=== PATIENT | female | born 1970 | race Caucasian/White ===

== ENCOUNTER 2017-03-08 17:50 | Observation (INO) | payer OTHER ==
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
[2017-03-08 20:14] LABS: BASO % 0.4 % (0.0-2.0); EOS # 0.1 K/uL (0.0-0.7); EOS % 1.3 % (0.0-4.0); HEMATOCRIT 33.6 % (34.0-47.0); LYMPH # 1.8 K/uL (1.0-4.3); LYMPH % 32.4 % (20.0-40.0); MEAN CELL VOLUME 86.6 fl (81.0-99.0); MEAN CORPUSCULAR HEMOGLOBIN 28.3 pg (27.0-31.0); MEAN CORPUSCULAR HGB CONC 32.7 g/dL (33.0-37.0); MEAN PLATELET VOLUME 8.1 fl (7.2-11.7); MONO # 0.6 K/uL (0.0-0.8); MONO % 10.7 % (0.0-10.0); NEUT % 55.2 % (50.0-75.0); NRBC % 0.1 % (0.0-0.0); RED CELL DISTRIBUTION WIDTH 16.9 % (11.5-14.5); WHITE BLOOD COUNT 5.4 K/uL (4.8-10.8)
[2017-03-08 20:21] LABS: ALB/GLOB RATIO 1.1 (1.0-2.1); ALKALINE PHOSPHATASE 77 U/L (38-126); ALT/SGPT 26 U/L (9-52); AST/SGOT 21 U/L (14-36); BILIRUBIN,TOTAL 0.5 mg/dl (0.2-1.3); BLOOD UREA NITROGEN 7 mg/dl (7-17); CALCIUM 9.4 mg/dL (8.4-10.2); CARBON DIOXIDE 27 mmol/L (22-30); CHLORIDE 107 mmol/L (98-107); GFR AFRICAN-AMERICAN > 60; GLUCOSE,RANDOM 96 mg/dL (65-105); MAGNESIUM 2.2 MG/DL (1.6-2.3); PHOSPHOROUS 3.7 mg/dl (2.5-4.5); POTASSIUM 4.3 MMOL/L (3.6-5.0); SODIUM 139 mmol/l (132-148); TOTAL PROTEIN 7.4 G/DL (6.3-8.2)
[2017-03-08 20:51] LABS: THYROID STIMULATING HORMONE 2.53 mIU/ML (0.46-4.68)
[2017-03-08 22:26] LABS: RBC URINE 3 /hpf (0-3); URINE BACTERIA RARE (<OCC); URINE BILIRUBIN NEGATIVE (NEGATIVE); URINE BLOOD NEGATIVE (NEGATIVE); URINE COLOR YELLOW (YELLOW); URINE GLUCOSE (UA) NEG (Normal); URINE KETONE NEGATIVE (NEGATIVE); URINE LEUKOCYTE ESTERASE SMALL Leu/uL (Negative); URINE PROTEIN NEGATIVE (NEGATIVE); URINE UROBILINOGEN 0.2-1.0 mg/dL (0.2-1.0)
[2017-03-08 22:29] LABS: WBC URINE 6 /hpf (0-5)
--- NOTE | 2017-03-09 00:33 | ED PDOC ---
- Laboratory Results Result Diagrams: 03/08/17 19:58 03/08/17 19:58 - ECG O2 Sat by Pulse Oximetry: 99 Medical Decision Making Medical Decision Makin Patient signed out to me from Dr. Orr pending crisis eval. All further documentation will take place in ED OBS section of chart. Scribe Attestation: Documented by Michelle Waddell acting as a scribe for Philipp Cohen MD. Scribe Attestation: All medical record entries made by the Scribe were at my direction and personally dictated by me. I have reviewed the chart and agree that the record accurately reflects my personal performance of the history, physical exam, medical decision making, and the department course for this patient. I have also personally directed, reviewed, and agree with the discharge instructions and disposition. Disposition - Clinical Impression Clinical Impression: Psychosis - POA Present On Arrival: None - Disposition Disposition: Hospitalized as Observation Patient Disposition Time: 18:32 (03/08/17) Condition: FAIR Patient Signed Over To: Marino Chang (at 07:00 03/09/17) Handoff Comments: Pending CT ED OBSERVATION Date of observation admission: 03/08/17 Time of observation admission: 18:32 - Observation admission statement Patient is being placed in observation because:: crisis eval - Goals of Observation Goals of observation are:: psychiatric diagnosis - Progress Note Progress Note: 03/09/17 00:33 Patient resting comfortably. 03/09/17 00:33 Patient pending [facility] evaluation. 03/09/17 02:00 Patient resting in room. Vitals stable. 03/09/17 03:07 Patient resting in room. Vitals stable. 03/09/17 04:23 Patient resting in room. Vitals stable. 03/09/17 05:44 Patient resting in room. Vitals stable. 03/09/17 07:00 Patient resting in room. Vitals stable. Patient will be signed out to Dr. Chang pending CT.
--- NOTE | 2017-03-09 08:24 | CT ---
PROCEDURE: CT HEAD WITHOUT CONTRAST. HISTORY: ALTERED MENTAL STATUS COMPARISON: None available. TECHNIQUE: Axial computed tomography images were obtained through the head/brain without intravenous contrast. Radiation dose: Total exam DLP = 883.18 mGy-cm. This CT exam was performed using one or more of the following dose reduction techniques: Automated exposure control, adjustment of the mA and/or kV according to patient size, and/or use of iterative reconstruction technique. FINDINGS: HEMORRHAGE: No intracranial hemorrhage. BRAIN: No mass effect or edema. No atrophy or chronic microvascular ischemic changes. VENTRICLES: Unremarkable. No hydrocephalus. CALVARIUM: Unremarkable. PARANASAL SINUSES: Unremarkable as visualized. No significant inflammatory changes. MASTOID AIR CELLS: Unremarkable as visualized. No inflammatory changes. OTHER FINDINGS: None. IMPRESSION: Normal CT of the Head. No intracranial mass, hemorrhage or evidence of acute infarct. Preliminary interpretation of this examination was reported by [facility] at 9:08 p.m. on 03/08/2017. There is concurrence of this report with the preliminary interpretation.
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
--- NOTE | 2017-03-09 10:37 | CARD ---
APPROVED REPORT EKG Measurement Heart [id number] <Conclusion> Normal sinus rhythm Nonspecific T wave abnormality Abnormal ECG
--- NOTE | 2017-03-09 15:42 | ED PDOC ---
- Laboratory Results Result Diagrams: 03/08/17 19:58 03/08/17 19:58 - ECG O2 Sat by Pulse Oximetry: 100 Pulse Ox Interpretation: Normal - Progress ED Course And Treament: pt has been comfortable during my entire shift. pt screen and accepted to [facility] and is now awaiting bed placement. Re-evaluation Time: 15:40 Condition: Unchanged Disposition Counseled Patient/Family Regarding: Studies Performed, Diagnosis, Need For Followup - Clinical Impression Clinical Impression: Psychosis - POA Present On Arrival: None - Disposition Disposition: Discharged to Psych Hospital Disposition Time: 15:41 Condition: STABLE
--- NOTE | 2017-03-09 16:54 | ED PDOC ---
- Laboratory Results Result Diagrams: 03/08/17 19:58 03/08/17 19:58 - ECG O2 Sat by Pulse Oximetry: 100 (RA) Pulse Ox Interpretation: Normal Medical Decision Making Medical Decision Makin:53 Patient signed out to me from Dr. Chang. Disposition - Clinical Impression Clinical Impression: Psychosis - POA Present On Arrival: None - Disposition Disposition: Transfer of Care Disposition Time: 19:00 Condition: STABLE Patient Signed Over To: Sincere Sotomayor
--- NOTE | 2017-03-09 19:18 | ED PDOC ---
- Laboratory Results Result Diagrams: 03/08/17 19:58 03/08/17 19:58 - ECG O2 Sat by Pulse Oximetry: 100 (RA) Pulse Ox Interpretation: Normal Medical Decision Making Medical Decision Makin:00 Patient signed out to me from Dr. Tobar. Patient's condition is stable. Disposition - Clinical Impression Clinical Impression: Psychosis - Disposition Condition: STABLE
--- NOTE | 2017-03-09 19:19 | ED PDOC ---
- Laboratory Results Result Diagrams: 03/08/17 19:58 03/08/17 19:58 - ECG O2 Sat by Pulse Oximetry: 100 (RA) Pulse Ox Interpretation: Normal Medical Decision Making Medical Decision Makin:00 Patient signed out to me from Dr. Orr. Patient is accepted at [facility] pending bed availability. Disposition - Clinical Impression Clinical Impression: Psychosis - POA Present On Arrival: None - Disposition Disposition: Hospitalized as Observation Patient Disposition Time: 18:32 (03/09/2017) Condition: FAIR Patient Signed Over To: Mikey Barros III (at 0700 03/10/2017) Handoff Comments: Pending [facility] bed placement ED OBSERVATION Date of observation admission: 03/09/17 Time of observation admission: 18:32 - Observation admission statement Patient is being placed in observation because:: Now pending [facility] bed availability - Goals of Observation Goals of observation are:: [facility] bed - Progress Note Progress Note: 03/09/17 18:32 Patient resting comfortably. Vitals stable. 03/09/17 19:51 Ativan 1mg IM 03/09/17 21:30 Patient's condition remains stable. 03/09/17 23:12 Ativan 1mg IM 03/10/17 00:26 Patient's condition remains stable. Resting comfortably. CXR 03/10/17 01:37 Patient's condition remains stable. Resting comfortably. 03/10/17 02:51 CXR FINDINGS: The mediastinal cardiac silouette is normal in size. Pleural and diaphragmatic calcifications are present. Correlation with history of asbestos exposure may be helpful. There are scattered irregular patchy opacities throughout the lungs bilaterally of uncertain origin although possibilities would include inflammatory, infectious, neoplastic etiologies. No effusions are identified. The osseous structures are normal. IMPRESSION: Irregular patchy pulmonary densities bilaterally as discussed above for which followup is recommended. If there are prior studies, I would be happy to correlate them. Pleural and diaphragmatic calcifications. CT CHEST W CONTRAST Abnormal findings found with CXR, not likely acute. 03/10/17 03:32 Attempted to speak Luke and Kazakh to patient with no response. Gómez automotive metalsmith is unable to be found at this time. Patient is combative requiring sedation. CT CHEST ordered to further characterize lesions seen on CXR. 03/10/17 04:45 CT FINDINGS No pulmonary embolism. No aortic dissection or aneurysm. No pleural or pericardial effussions. There are extensive calcified pleural plaques throughout both lungs including the diaphragmatic interface, presumably accounting for the dense opacities seen on chest x-ray. There are no pulmonary infiltrates identified. IMPRESSION: Extensive calcified pleural plaques bilaterally,a finding associated with asbestos exposure and presumably accounting for the densities on chest x-ray. 03/10/17 04:54 Patient likely has previously history of asbestos exposure. Patient notes no respiratory complaints or issues. (-) cough or hypoxia. No specific treatment or work up indicated. Patient medically clear for psychiatric admission. 03/10/17 05:37 Patient's condition remains stable. 03/10/17 06:[address] Wilson (pulmonary), who believes patient has been in this condition for likely more than a decade. No treatment indicated, no need for admission. 03/10/17 07:00 Patient will be signed out to Dr. Barros pending [facility] bed placement.
--- NOTE | 2017-03-10 02:50 | RAD ---
EXAM: XR Chest, 1 View EXAM DATE/TIME: 03/10/2017 12:26 AM CLINICAL HISTORY: 46 years old, female; Screening exam; Other screening; Additional info: R/O pna TECHNIQUE: Frontal view of the chest. COMPARISON: No relevant prior studies available. FINDINGS: The mediastinal cardiac silouette is normal in size. Pleural and diaphragmatic calcifications are present. Correlation with history of asbestos exposure may be helpful. There are scattered irregular patchy opacities throughout the lungs bilaterally of uncertain origin although possibilities would include inflammatory, infectious, neoplastic etiologies. No effusions are identified. The osseous structures are normal. IMPRESSION: Irregular patchy pulmonary densities bilaterally as discussed above for which followup is recommended.If there are prior studies, I would be happy to correlate them. Pleural and diaphragmatic calcifications.
[2017-03-10] MEDS ORDERED: Sodium Chloride 0.9% 50 ML IV ONE (03:08)
[2017-03-10] MEDS ORDERED: Iohexol 300 100 ML IJ ONE (03:08)
--- NOTE | 2017-03-10 04:42 | CT ---
EXAM: CT Chest With Intravenous Contrast EXAM DATE/TIME: 03/10/2017 2:52 AM CLINICAL HISTORY: 46 years old, female; Abnormal findings; Abnormal radiologic exam of lung or chest; Additional info: Opacities on xray, R/O neoplasm v. Pna. Patient not able to cooperate for exam TECHNIQUE: Axial computed tomography images of the chest with intravenous contrast. All CT scans at this facility use one or more dose reduction techniques, viz.: automated exposure control; ma/kV adjustment per patient size (including targeted exams where dose is matched to indication; i.e. head); or iterative reconstruction technique. Coronal and sagittal reformatted images were created and reviewed. CONTRAST: 80 mL of [id number] administered intravenously. COMPARISON: CR - CHEST PORTABLE 03/10/2017 1:01:07 AM FINDINGS: No pulmonary embolism. No aortic dissection or aneurysm. No pleural or pericardial effussions. There are extensive calcified pleural plaques throughout both lungs including the diaphragmatic interface, presumably accounting for the dense opacities seen on chest x-ray. There are no pulmonary infiltrates identified. IMPRESSION: Extensive calcified pleural plaques bilaterally,a finding associated with asbestos exposure and presumably accounting for the densities on chest x-ray .
--- NOTE | 2017-03-10 07:07 | ED PDOC ---
- Laboratory Results Result Diagrams: 03/08/17 19:58 03/08/17 19:58 - ECG O2 Sat by Pulse Oximetry: 100 (RA) Medical Decision Making Medical Decision Makin recd on endorsement pending [facility] bed. 10:30a remains in ED awake, cooperative with periods of mild agitation Psychiatrist saw patient and ordered medication 1p [facility] made aware of pulmonary thoughts on abnormal CXR/ CT. Remains w no respiratory complaints in ED, normal respiratory effort. 3pm endorsed Dr Hawkins pending [facility] bed. Per RN, medically accepted at [facility]. Disposition Counseled Patient/Family Regarding: Studies Performed, Diagnosis - Clinical Impression Clinical Impression: Psychosis - POA Present On Arrival: None - Disposition Disposition: Transfer of Care Disposition Time: 15:25 Condition: FAIR
[2017-03-10 10:33] VITALS: RESP 20
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
[2017-03-10 16:00] VITALS: BP 138/80; PULSE 88; TEMP 98.7
[2017-03-12 05:15] VITALS: O2SAT 99
== END 2017-03-10 17:05 ==
LOC: H.ER 17:50 → H.EROBSV 18:32
PROVIDERS: ADMIT Emergency Medicine; ATTEND Emergency Medicine
DX: F29 Unspecified psychosis not due to a substance or known physiological condition (principal); Z77.090 Contact with and (suspected) exposure to asbestos
CPT/HCPCS: 36415; 70450; 71010; 71260; 80053; 80320; 80324; 80345; 80346; 80349; 80353; 80358; 80361; 81003; 82948; 83735; 83992; 84100; 84443; 84703; 85025; 93005; 96372; 96374; 99285; G0378; J2060; Q9967

== ENCOUNTER 2018-11-25 05:54 | Emergency (ER) | payer OTHER ==
--- NOTE | 2018-11-25 06:47 | ED PDOC ---
HPI: Psych/Substance Abuse Time Seen by Provider: 11/25/18 05:58 Chief Complaint (Nursing): Psychiatric Evaluation Chief Complaint (Provider): Psychiatric Evaluation History Per: Patient, Family, Integration Analyst (Gujarati Integration Analyst RADHA) History/Exam Limitations: clinical condition Onset/Duration Of Symptoms: Days Current Symptoms Are (Timing): Still Present Suicide/Self Injury Attempted (Context): None Modifying Factor(s): None Additional Complaint(s): 48 y/o female brought in by family for psychiatric evaluation. History obtained from children using Gujarati Integration Analyst RADHA. Patient with a PMHx of depression was taking [place] and Zyprexa until February 2018 when her family discontinued the medications because of a side affect of leg swelling. Family report that over the past month, patient is becoming increasingly more depressed, not wanting to leave the house or answering questions. As per family, patient is becoming more and more withdrawn. Family report of having called mobile crisis and was recommended by them to bring the patient to the ER for further evaluation. Patient offers no complaints at this time. Patient reports of feeling well. Patient denies suicidal ideation, homicidal ideation, taking any medications and any psychiatric issues. History from patient limited because patient only answers a few questions despite multiple prompts in her [place] language of Gujarati. PMD: Colton Woodson Past Medical History Reviewed: Historical Data, Nursing Documentation, Vital Signs Vital Signs: Last Vital Signs Temp 98.3 F 11/25/18 06:04 Pulse 127 H 11/25/18 06:04 Resp 18 11/25/18 06:04 BP 132/96 H 11/25/18 06:04 Pulse Ox 98 11/25/18 06:04 Primary Care Provider: Colton Woodson - Medical History PMH: Depression Denies: Diabetes, Hepatitis, HIV, HTN, Seizures, Sexually Transmitted Disease - Surgical History Surgical History: No Surg Hx - Family History Family History: States: Unknown Family Hx - Living Arrangements Living Arrangements: With Family - Home Medications Home Medications: Ambulatory Orders Medication Instructions Recorded Unobtainable 03/09/17 - Allergies Allergies/Adverse Reactions: Allergies Allergy/AdvReac Type Severity Reaction Status Date / Time No Known Allergies Allergy Verified 11/25/18 06:04 Review of Systems ROS Statement: Except As Marked, All Systems Reviewed And Found Negative Psych: Positive for: Depression. Negative for: Suicidal ideation Physical Exam - Reviewed Nursing Documentation Reviewed: Yes Vital Signs Reviewed: Yes - Physical Exam Appears: Positive for: No Acute Distress (but withdrawn and anxious appearing) Head Exam: Positive for: ATRAUMATIC, NORMOCEPHALIC Skin: Positive for: Normal Color, Warm, Dry Eye Exam: Positive for: Normal appearance, EOMI, PERRL ENT: Positive for: Normal ENT Inspection Neck: Positive for: Normal, Painless ROM Cardiovascular/Chest: Positive for: Regular Rate, Rhythm. Negative for: Murmur Respiratory: Positive for: Normal Breath Sounds. Negative for: Respiratory Distress Gastrointestinal/Abdominal: Positive for: Normal Exam, Soft. Negative for: Tenderness Back: Positive for: Normal Inspection Extremity: Positive for: Normal ROM. Negative for: Pedal Edema, Deformity Neurological/Psych: Positive for: Awake, Alert, Oriented (x3), Mood/Affect (Depressed Mood/Flat Affect). Negative for: Motor/Sensory Deficits - Laboratory Results Result Diagrams: 11/25/18 07:20 11/25/18 18:24 - ECG O2 Sat by Pulse Oximetry: 98 (RA) Pulse Ox Interpretation: Normal Medical Decision Making Medical Decision Making: Time: 632 A/P: 48 y/o female presenting with depression. -- According to family, patient is not at her baseline currently. -- Will obtain blood work for medical clearance -- Will obtain crisis evaluation. -- Acetaminophen -- Alcohol Serum -- BMP -- Urine Drug Screen -- Salicylate -- CBC with Depression -- Glucose, POC -- 1:1 Observation -- Urinalysis Time: 0700 -- Patient endorsed to Dr. Rivera, pending ER workup, re-evaluation and final ER disposition. Scribe Attestation: Documented by Rosalinda Dawn, acting as a scribe Ila Sotomayor MD. Provider Scribe Attestation: All medical record entries made by the Scribe were at my direction and personal ly dictated by me. I have reviewed the chart and agree that the record accurately reflects my personal performance of the history, physical exam, medical decision making, and the department course for this patient. I have also personally directed, reviewed, and agree with the discharge instructions and disposition. Disposition - Clinical Impression Clinical Impression: Psychosis - Patient ED Disposition Is Patient to be Admitted: Transfer of Care - Disposition Disposition: Transfer of Care Disposition Time: 07:00 Condition: FAIR Forms: [employer] (Croatian) Patient Signed Over To: Calvin Rivera Handoff Comments: Pending ER Workup, re-evaluation and final ER dispostion.
--- NOTE | 2018-11-25 07:17 | ED PDOC ---
- Laboratory Results Result Diagrams: 11/25/18 07:20 11/25/18 18:24 Interpretation Of Abn Labs: no acute - ECG O2 Sat by Pulse Oximetry: 98 (RA) Pulse Ox Interpretation: Normal - Progress ED Course And Treament: 1000: Stable. Alert. Crisis to see pt. 1200: Stable. Crisis saw pt. and wants [facility] to screen. Medical Decision Making Medical Decision Makin Patient endorsed by Dr. Sotomayor, pending labs, medical clearance, crisis evaluation and final disposition. Scribe Attestation: Documented by Stephanie Hinojosa acting as a scribe for Calvin Rivera MD. Provider Scribe Attestation: All medical record entries made by the Scribe were at my direction and personally dictated by me. I have reviewed the chart and agree that the record accurately reflects my personal performance of the history, physical exam, medical decision making, and the department course for this patient. I have also personally directed, reviewed, and agree with the discharge instructions and disposition. Disposition - Clinical Impression Clinical Impression: Psychosis - POA Present On Arrival: None - Disposition Disposition: Transfer of Care Disposition Time: 14:14 Condition: FAIR
[2018-11-25 07:31] LABS: BASO % 0.7 % (0.0-2.0); EOS # 0.1 K/uL (0.0-0.7); EOS % 2.2 % (0.0-4.0); HEMOGLOBIN 12.9 g/dL (12.0-16.0); LYMPH # 1.4 K/uL (1.0-4.3); LYMPH % 30.7 % (20.0-40.0); MEAN CELL VOLUME 70.7 fl (81.0-99.0); MEAN CORPUSCULAR HEMOGLOBIN 22.9 pg (27.0-31.0); MEAN CORPUSCULAR HGB CONC 32.4 g/dL (33.0-37.0); MEAN PLATELET VOLUME 8.3 fl (7.2-11.7); MONO # 0.6 K/uL (0.0-0.8); MONO % 13.3 % (0.0-10.0); NEUT # 2.4 K/uL (1.8-7.0); NEUT % 53.1 % (50.0-75.0); NRBC % 0.1 % (0.0-0.0); RBC 5.61 Mil/uL (3.80-5.20); RED CELL DISTRIBUTION WIDTH 17.4 % (11.5-14.5); WHITE BLOOD COUNT 4.5 K/uL (4.8-10.8)
[2018-11-25 07:47] LABS: BLOOD UREA NITROGEN 7 mg/dl (7-17); CALCIUM 9.9 mg/dL (8.4-10.2); GFR NON-AFRICAN AMERICAN > 60
[2018-11-25 08:03] LABS: ACETAMINOPHEN < 10.0 ug/ml (10.0-30.0); SALICYLATE < 1.0 mg/dl
[2018-11-25 09:01] LABS: SQUAMOUS EPITHIAL 27 /hpf (0-5); URINE BACTERIA OCC (<OCC); URINE BILIRUBIN NEGATIVE (NEGATIVE); URINE BLOOD SMALL (NEGATIVE); URINE CLARITY CLOUDY (Clear); URINE COLOR AMBER (YELLOW); URINE GLUCOSE (UA) NEG (NEGATIVE); URINE HYALINE CAST 0-2 /hpf (0-2); URINE LEUKOCYTE ESTERASE MOD Leu/uL (Negative); URINE PROTEIN 30 mg/dL (NEGATIVE); URINE UROBILINOGEN 0.2-1.0 mg/dL (0.2-1.0)
[2018-11-25 09:15] LABS: BARBITURATES, UR NEGATIVE (NEGATIVE); BENZODIAZEPINES, UR NEGATIVE (NEGATIVE); OPIATES, UR NEGATIVE (NEGATIVE); PHENCYCLIDINE, UR NEGATIVE (NEGATIVE)
[2018-11-25 19:01] LABS: ALB/GLOB RATIO 1.1 (1.0-2.1); ALBUMIN 4.8 g/dL (3.5-5.0); ALT/SGPT 31 U/L (9-52); AST/SGOT 42 U/L (14-36); BLOOD UREA NITROGEN 12 mg/dl (7-17); CALCIUM 9.9 mg/dL (8.4-10.2); GFR NON-AFRICAN AMERICAN > 60
--- NOTE | 2018-11-25 23:20 | ED PDOC ---
- Laboratory Results Result Diagrams: 11/25/18 07:20 11/25/18 18:24 Lab Results: Total Bilirubin 0.9 mg/dl (0.2-1.3) 11/25/18 18:24 AST 42 U/L (14-36) H 11/25/18 18:24 ALT 31 U/L (9-52) 11/25/18 18:24 Alkaline Phosphatase 146 U/L (38-126) H 11/25/18 18:24 Total Protein 9.2 G/DL (6.3-8.2) H 11/25/18 18:24 Albumin 4.8 g/dL (3.5-5.0) 11/25/18 18:24 Globulin 4.4 gm/dL (2.2-3.9) H 11/25/18 18:24 Albumin/Globulin Ratio 1.1 (1.0-2.1) 11/25/18 18:24 Urine Color Ilda (YELLOW) 11/25/18 08:24 Urine Clarity Cloudy (Clear) 11/25/18 08:24 Urine pH 5.0 (5.0-8.0) 11/25/18 08:24 Ur Specific [place] 1.019 (1.003-1.030) 11/25/18 08:24 Urine Protein 30 mg/dL (NEGATIVE) 11/25/18 08:24 Urine Glucose (UA) Neg mg/dL (NEGATIVE) 11/25/18 08:24 Urine Ketones 80 mg/dL (NEGATIVE) 11/25/18 08:24 Urine Blood Small (NEGATIVE) 11/25/18 08:24 Urine Nitrate Negative (NEGATIVE) 11/25/18 08:24 Urine Bilirubin Negative (NEGATIVE) 11/25/18 08:24 Urine Urobilinogen 0.2-1.0 mg/dL (0.2-1.0) 11/25/18 08:24 Ur Leukocyte Esterase Mod Benjamin/uL (Negative) 11/25/18 08:24 Urine RBC (Auto) 6 /hpf (0-3) H 11/25/18 08:24 Urine Microscopic WBC 18 /hpf (0-5) H 11/25/18 08:24 Ur Squamous Epith Cells 27 /hpf (0-5) H 11/25/18 08:24 Urine Bacteria Occ (<OCC) H 11/25/18 08:24 Hyaline Casts 0-2 /hpf (0-2) 11/25/18 08:24 - ECG O2 Sat by Pulse Oximetry: 99 (RA) Pulse Ox Interpretation: Normal Medical Decision Making Medical Decision Making: Time: 1899 -- Patient endorsed to me by Dr. Rivera, pending [facility] screen. Time: 2321 -- Patient re-assessed at bedside and offered food and tea. Patient offers no complaints at this time. Patient seen pacing around the room. -- Will continue to monitor. -- CXR shows no changes from CXR dated from 2016 Time: 29 -- On re-evaluation, patient seen pacing around the room. Patient declining to eat at this time. Patient screened by [facility] who will admit the patient. Currently pending bed availability. Time: 0230 -- On re-evaluation, patient seen sitting on bed, in no acute distress. Patient has yet to fall asleep. Time: 0600 -- On re-evaluation, patient seen eating salad in room. Patient in no acute distress at this time. Patient additionally slept for a short period of time prior to eating. Time: 07 -- Patient endorsed to Dr. Rivera, pending [facility] bed availability. Scribe Attestation: Documented by Rosalinda Dawn, acting as a scribe Ila Sotomayor MD. Provider Scribe Attestation: All medical record entries made by the Scribe were at my direction and personally dictated by me. I have reviewed the chart and agree that the record accurately reflects my personal performance of the history, physical exam, medical decision making, and the department course for this patient. I have also personally directed, reviewed, and agree with the discharge instructions and disposition. Disposition Counseled Patient/Family Regarding: Studies Performed, Diagnosis - Clinical Impression Clinical Impression: Psychosis - POA Present On Arrival: None - Disposition Disposition: Transfer of Care Disposition Time: 07:00 Condition: FAIR Forms: [employer] (Ugandan) Patient Signed Over To: Calvin Rivera Handoff Comments: pending [facility] bed availabilty
--- NOTE | 2018-11-26 07:38 | ED PDOC ---
- Laboratory Results Result Diagrams: 11/25/18 07:20 11/25/18 18:24 Lab Results: Total Bilirubin 0.9 mg/dl (0.2-1.3) 11/25/18 18:24 AST 42 U/L (14-36) H 11/25/18 18:24 ALT 31 U/L (9-52) 11/25/18 18:24 Alkaline Phosphatase 146 U/L (38-126) H 11/25/18 18:24 Total Protein 9.2 G/DL (6.3-8.2) H 11/25/18 18:24 Albumin 4.8 g/dL (3.5-5.0) 11/25/18 18:24 Globulin 4.4 gm/dL (2.2-3.9) H 11/25/18 18:24 Albumin/Globulin Ratio 1.1 (1.0-2.1) 11/25/18 18:24 Urine Color Ilda (YELLOW) 11/25/18 08:24 Urine Clarity Cloudy (Clear) 11/25/18 08:24 Urine pH 5.0 (5.0-8.0) 11/25/18 08:24 Ur Specific [place] 1.019 (1.003-1.030) 11/25/18 08:24 Urine Protein 30 mg/dL (NEGATIVE) 11/25/18 08:24 Urine Glucose (UA) Neg mg/dL (NEGATIVE) 11/25/18 08:24 Urine Ketones 80 mg/dL (NEGATIVE) 11/25/18 08:24 Urine Blood Small (NEGATIVE) 11/25/18 08:24 Urine Nitrate Negative (NEGATIVE) 11/25/18 08:24 Urine Bilirubin Negative (NEGATIVE) 11/25/18 08:24 Urine Urobilinogen 0.2-1.0 mg/dL (0.2-1.0) 11/25/18 08:24 Ur Leukocyte Esterase Mod Benjamin/uL (Negative) 11/25/18 08:24 Urine RBC (Auto) 6 /hpf (0-3) H 11/25/18 08:24 Urine Microscopic WBC 18 /hpf (0-5) H 11/25/18 08:24 Ur Squamous Epith Cells 27 /hpf (0-5) H 11/25/18 08:24 Urine Bacteria Occ (<OCC) H 11/25/18 08:24 Hyaline Casts 0-2 /hpf (0-2) 11/25/18 08:24 - ECG O2 Sat by Pulse Oximetry: 99 (RA) Pulse Ox Interpretation: Normal Medical Decision Making Medical Decision Makin:00 48 year old female presents to the ED for psychiatric evaluation. Patient care endorsed from Dr. Sotomayor to Dr. Rivera pending [facility] [place] [place] bed availability. Scribe Attestation: Documented by Ab Mcclure, acting as a scribe for Calvin Rivera MD Provider Scribe Attestation: All medical record entries made by the Scribe were at my direction and personally dictated by me. I have reviewed the chart and agree that the record accurately reflects my personal performance of the history, physical exam, medical decision making, and the department course for this patient. I have also personally directed, reviewed, and agree with the discharge instructions and disposition. 1848: Dr. Velasquez to take over care. Fu on [facility] [place] [place] bed. Disposition - Clinical Impression Clinical Impression: Psychosis - POA Present On Arrival: None - Disposition Disposition: Transfer of Care Disposition Time: 18:49 Condition: FAIR
--- NOTE | 2018-11-26 09:11 | RAD ---
Date of service: 11/25/2018 HISTORY: psych complaint COMPARISON: No prior. TECHNIQUE: 1 view obtained. FINDINGS: LUNGS: No active pulmonary disease. PLEURA: No significant pleural effusion identified, no pneumothorax apparent. Scattered bilateral calcified pleural plaques reiterated diffusely. CARDIOVASCULAR: No aortic atherosclerotic calcification present. Normal cardiac size. No pulmonary vascular congestion. OSSEOUS STRUCTURES: No significant abnormalities. VISUALIZED UPPER ABDOMEN: Normal. OTHER FINDINGS: Note, patient refused to remove broad this examination. IMPRESSION: No interval acute infiltrate, pleural effusion or pulmonary vascular congestion. Scattered diffuse bilateral pulmonary plaques again evident. Overall examination is not significantly changed in the interval.
--- NOTE | 2018-11-26 12:08 | CP.PCM.CON ---
History of Present Illness - History of Present Illness History of Present Illness: Psychiatry consult note CC: Bizarre behavior; refusing to talk HPI: Patient currently staring at blog writer, refusing to talk or answer questions. She was screened by [facility] and found to meet criteria for involuntary psychiatric commitment. Additional history from primary crisis assessment: "48-year-old, , , Female referred to the ED by her children. Pt has a primary diagnosis of Depression and was admitted once in [place]. Pt was taking [place] and Zyprexa; however, her family discontinued the medications due to a side effect of leg swelling. For the past month, the patient has not been leaving the house, nor is she taking care of her ADLs. The patient has also been isolating herself and has becoming more withdrawn. Patient was admitted in [place] back in 2017 and was then transferred to [facility] for involuntary admission. Upon leaving [facility], patient was transferred to [facility]. Pt does not know why she is in the hospital. Patients affect was flat, and speech was soft and low. Patient appears to be mumbling during the assessment. Pt seemed to be internally preoccupied and was looking at the ceiling the whole entire time. Patient denied having a psychiatric history. Patient was offered admission; however, the pa tient is currently unwilling to stay and get treatment. Patient has no insight regarding her mental health illness. Patient denied having any SI/HI. Pt denied any A/V/T hallucinations. Pt is oriented x3. ER CW spoke w/ the patients daughter, Sheyla, whom was concerned about her mother. As per Sheyla, the patient has acutely decompensated in the last month. The patient refuses to speak to anyone at home nor any other family members. Pt would sit for hours in one spot and would only stare at the ceiling or the wall. The patient has not been taking care of her ADLs. Patient stopped taking her m edications in 2018. Family is concerned about the patients wellbeing. As per previous report, pt was treated in [place]. Pt was admitted in [place] around 2017, but was then transferred to [facility]. Once d/c from [facility], patient was transferred to [facility] where she resided for a month." Impression: 48 yo female presents acutely psychotic and decompensated in the context of non-compliance with treatment or medications. -Transfer to [facility] for involuntary psychiatric admission when bed is available Past Patient History - Past Social History Smoking Status: Never Smoked - CARDIAC Hx Hypertension: No - PULMONARY Hx Tuberculosis: No - NEUROLOGICAL Hx Seizures: No - HEMATOLOGICAL/ONCOLOGICAL Hx Human Immunodeficiency Virus (HIV): No - GENITOURINARY/GYNECOLOGICAL Hx Sexually Transmitted Disorders: No - PSYCHIATRIC Hx Depression: Yes - ANESTHESIA Hx Anesthesia: No Meds Allergies/Adverse Reactions: Allergies Allergy/AdvReac Type Severity Reaction Status Date / Time No Known Allergies Allergy Verified 11/25/18 06:04 Results - Vital Signs Recent Vital Signs: Last Vital Signs Temp 98.1 F 11/26/18 08:00 Pulse 82 11/26/18 08:00 Resp 17 11/26/18 08:00 BP 132/71 11/26/18 08:00 Pulse Ox 100 11/26/18 08:00 - Labs Result Diagrams: 11/25/18 07:20 11/25/18 18:24 Labs: Laboratory Results - last 24 hr 11/25/18 18:24 Sodium 136 Potassium 4.3 Chloride 98 Carbon Dioxide 22 Anion Gap 20 BUN 12 Creatinine 0.6 L Est GFR ( Amer) > 60 Est GFR (Non-Af Amer) > 60 Random Glucose 75 Calcium 9.9 Total Bilirubin 0.9 AST 42 H ALT 31 Alkaline Phosphatase 146 H Total Protein 9.2 H Albumin 4.8 Globulin 4.4 H Albumin/Globulin Ratio 1.1
--- NOTE | 2018-11-26 19:02 | CARD ---
APPROVED REPORT Date of service: 11/25/2018 EKG Measurement Heart [id number] <Conclusion> Normal sinus rhythm Possible Left atrial enlargement T wave abnormality, consider anterior ischemia Abnormal ECG
--- NOTE | 2018-11-26 19:12 | ED PDOC ---
- Laboratory Results Result Diagrams: 11/25/18 07:20 11/25/18 18:24 Lab Results: Total Bilirubin 0.9 mg/dl (0.2-1.3) 11/25/18 18:24 AST 42 U/L (14-36) H 11/25/18 18:24 ALT 31 U/L (9-52) 11/25/18 18:24 Alkaline Phosphatase 146 U/L (38-126) H 11/25/18 18:24 Total Protein 9.2 G/DL (6.3-8.2) H 11/25/18 18:24 Albumin 4.8 g/dL (3.5-5.0) 11/25/18 18:24 Globulin 4.4 gm/dL (2.2-3.9) H 11/25/18 18:24 Albumin/Globulin Ratio 1.1 (1.0-2.1) 11/25/18 18:24 Urine Color Ilda (YELLOW) 11/25/18 08:24 Urine Clarity Cloudy (Clear) 11/25/18 08:24 Urine pH 5.0 (5.0-8.0) 11/25/18 08:24 Ur Specific [place] 1.019 (1.003-1.030) 11/25/18 08:24 Urine Protein 30 mg/dL (NEGATIVE) 11/25/18 08:24 Urine Glucose (UA) Neg mg/dL (NEGATIVE) 11/25/18 08:24 Urine Ketones 80 mg/dL (NEGATIVE) 11/25/18 08:24 Urine Blood Small (NEGATIVE) 11/25/18 08:24 Urine Nitrate Negative (NEGATIVE) 11/25/18 08:24 Urine Bilirubin Negative (NEGATIVE) 11/25/18 08:24 Urine Urobilinogen 0.2-1.0 mg/dL (0.2-1.0) 11/25/18 08:24 Ur Leukocyte Esterase Mod Benjamin/uL (Negative) 11/25/18 08:24 Urine RBC (Auto) 6 /hpf (0-3) H 11/25/18 08:24 Urine Microscopic WBC 18 /hpf (0-5) H 11/25/18 08:24 Ur Squamous Epith Cells 27 /hpf (0-5) H 11/25/18 08:24 Urine Bacteria Occ (<OCC) H 11/25/18 08:24 Hyaline Casts 0-2 /hpf (0-2) 11/25/18 08:24 - ECG O2 Sat by Pulse Oximetry: 99 (RA) Medical Decision Making Medical Decision Makin:00 Patient signed out to me by Calvin Rivera MD pending [facility] [place]. Patient resting comfortably, in no distress, stable. 20:45 pt awake and sitting in bed in NAD. Bed available at [facility] 22:20 Patient transported to [facility] Scribe Attestation: Documented by Alaina Mauro, acting as a scribe for Dylan Velasquez MD. Provider Scribe Attestation: All medical record entries made by the Scribe were at my direction and personally dictated by me. I have reviewed the chart and agree that the record accurately reflects my personal performance of the history, physical exam, medical decision making, and the department course for this patient. I have also personally directed, reviewed, and agree with the discharge instructions and disposition. Disposition - Clinical Impression Clinical Impression: Psychosis - POA Present On Arrival: None - Disposition Disposition: Other [place] [place] Disposition Time: 21:30 Condition: FAIR Forms: [employer] (Chinese)
[2018-11-26 20:55] VITALS: TEMP 98.2
[2018-11-26 22:26] VITALS: BP 155/82; PULSE 82; RESP 18
[2018-11-26 23:57] VITALS: O2SAT 99
== END 2018-11-26 22:26 | disposition short-term general hospital (02) ==
LOC: H.ER 05:54
DX: F23 Brief psychotic disorder (principal); F32.9 Major depressive disorder, single episode, unspecified